=== PATIENT | female | born 1965 | race Caucasian/White ===

== ENCOUNTER 2017-01-09 18:16 | Emergency (ER) | payer OTHER ==
--- NOTE | ~2017-01-09 | ER ---
PATIENT'S NAME: [facility] AGE: 51 Y [address] ROOM: [place], [place] [address] LOCATION: [facility] ADMIT DATE: 01/09/2017 ER/Outpatient Report DISCHARGE DATE: 01/09/2017 FAMILY PHYSICIAN: Fareed Rehman MD ATTENDING PHYSICIAN: Luis Alfaro Time of Arrival: 1820 hours. Time of Evaluation: 1830 hours. CHIEF COMPLAINT: Right leg pain. HISTORY OF PRESENT ILLNESS: The patient has history of Parkinson's, and it extremely affects her right arm and right leg. She states she has just a crampy type pain of the right upper leg area. She saw Dr. Land yesterday. She was given Demerol and Phenergan. Does not feel like it has helped at all. She did get her deep brain stimulator placed and is scheduled to go back to [place] on Saturday for them to turn it on. She says it is not on at this time. The pain she describes as being similar to what she has had in the past. Not changed in anyway. She has not noticed any swelling, discoloration, or temperature changes of her legs. ALLERGIES: SHE HAS NO KNOWN ALLERGIES. CURRENT MEDICATIONS: On her chart and were reviewed by me. PAST MEDICAL HISTORY: Parkinson's. PAST SURGICAL HISTORY: Deep brain stimulator was placed. She has had surgery to her right foot. SOCIAL HISTORY: She presented to the ER tonight with her father. Denies use of tobacco, alcohol, or drugs. REVIEW OF SYSTEMS: All negative other than those mentioned in the HPI. PHYSICAL EXAMINATION: VITAL SIGNS: She states she is 5 feet 6 inches. She weighs 56.3 kg, blood pressure is 115/80, pulse of 87, respirations 16, temperature of 98.5, O2 PATIENT'S NAME: [facility] AGE: 51 Y [address] ROOM: [place], [place] [address] LOCATION: [facility] ADMIT DATE: 01/09/2017 ER/Outpatient Report DISCHARGE DATE: 01/09/2017 FAMILY PHYSICIAN: Fareed Rehman MD ATTENDING PHYSICIAN: Luis Alfaro saturation is 97% on room air. GENERAL: She is awake, alert, and oriented x4. SKIN: Her skin is pink, warm, and dry. RESPIRATIONS: Even and nonlabored. Lung sounds are clear throughout. HEART: Regular rate and rhythm. She has strong right pedal pulses. No peripheral edema noted. No deviation of temperature of her legs is noted. She is able to walk in with a steady even gait. EMERGENCY DEPARTMENT COURSE: She was given Dilaudid 1 mg IM, Phenergan 50 mg IM. IMPRESSION: Right leg pain, related to chronic pain with Parkinson's. PLAN: She will be discharged home. Rest. She is to continue her current medications. I recommended that she follow up with Dr. Lnad or Dr. Rehman, who is her primary provider, within the next 1-2 days, keep her appointment for Josefa as scheduled, she verbalized understanding. ASAEL ROLDAN APRN FOR MD BEBA POSADAS/kourtney /[id number] d: 01/10/17 0112 t: 01/15/17 1232, OUTPATIENT REPORT
[2017-01-10] MEDS ORDERED: PERCOCET 10-321 EACH PO (21:21)
[2017-01-10] MEDS ORDERED: SINEMET 25-1001 EACH PO (21:22)
[2017-01-10] MEDS ORDERED: KLONOPIN0.5 MG PO (21:23)
[2017-01-10] MEDS ORDERED: REMERON15 MG PO (21:23)
[2017-01-10] MEDS ORDERED: LEXAPRO10 MG PO (21:23)
[2017-01-10] MEDS ORDERED: ATIVAN 0.5MG0.5 MG PO (21:24)
[2017-01-10] MEDS ORDERED: THERAGRAN-M1 TAB PO (21:24)
[2017-01-10] MEDS ORDERED: PHENERGAN25 M1 PO (21:25)
== END 2017-01-09 18:55 | disposition disaster alternative care site (69) ==
LOC: GMED 18:16
DX: G89.29 Other chronic pain (principal); M79.651 Pain in right thigh; G20 Parkinson's disease; Z98.890 Other specified postprocedural states; Z79.899 Other long term (current) drug therapy
CPT/HCPCS: J1170; J2550

== ENCOUNTER 2017-01-10 19:52 | Observation (INO) | payer OTHER ==
[~2017-01-10] VITALS: Ht 167.6 cm; Wt 56.0 kg
--- NOTE | ~2017-01-10 | DS ---
PATIENT'S NAME: IZABELA MARIE [facility] AGE: 51 Y [address] ROOM: [address] [address] LOCATION: [facility] ADMIT DATE: 01/10/2017 Discharge Summary DISCHARGE DATE: 01/12/2017 FAMILY PHYSICIAN: Fareed Rehman MD ATTENDING PHYSICIAN: Zoila Land DISCHARGE DIAGNOSES: 1. Uncontrolled chronic pain along with uncontrolled acute pain of arm and legs. 2. Parkinson's disease. 3. Anxiety. 4. Muscle spasms. CONSULTS DURING ADMISSION: PT/OT. PROCEDURES DURING ADMISSION: None. HOSPITAL COURSE: The patient is a 51-year-old female with known history of Parkinson's and also has chronic pain which was not controlled as an outpatient. She presented to the emergency department and was admitted and we did IV pain medication including Dilaudid. We did Valium for her pain. We were able to get it under control just before discharge. Parkinson's remained stable during hospital stay. DISCHARGE CONDITION: Stable. DISPOSITION: Home. DISCHARGE MEDICATIONS: Please see list. DISCHARGE INSTRUCTIONS: The patient is to follow up with her primary care physician as directed. She is to follow up with Neurosurgery for pain stimulator to be turned on accordingly. ZOILA LAND MD RLG/modl /[id number] d: 01/25/17199 t: 02/18/172022, DISCHARGE SUMMARY
[2017-01-10] MEDS ORDERED: PERCOCET 10-321 EACH PO (21:21)
[2017-01-10] MEDS ORDERED: SINEMET 25-1001 EACH PO (21:22)
[2017-01-10] MEDS ORDERED: KLONOPIN0.5 MG PO (21:23)
[2017-01-10] MEDS ORDERED: LEXAPRO10 MG PO (21:23)
[2017-01-10] MEDS ORDERED: REMERON15 MG PO (21:23)
[2017-01-10] MEDS ORDERED: THERAGRAN-M1 TAB PO (21:24)
[2017-01-10] MEDS ORDERED: ATIVAN 0.5MG0.5 MG PO (21:24)
[2017-01-10] MEDS ORDERED: PHENERGAN25 M1 PO (21:25)
--- NOTE | 2017-01-11 02:17 | NUR ---
Patient is a 51 year old female, direct admit from [facility] for R)sided arm and leg pain. History of parkinson's disease with recent pain pump implanted at [facility] which is to be turned on next Saturday. Patient admitted for pain control under observation. VSS on admit. PIV placed to L)wrist.
--- NOTE | 2017-01-11 04:56 | NUR ---
Significant Event:A/Ox3. Afebrile. Hypotensive 85/53 on last assessment MAP 63. Patient states that her bp are usually 90's or low 100's. Other VSS on RA. Continous pulse ox. Morphine given x4 last dose at 0415. Dilaudid x1. Ativan x1. Valium 1mg IV x1. Pain is now tolerable, last dose of morphine given to stay above the pain. Pain is described as cramping to her right arm and leg. Neck pain bothered her very badly tonight until now. Patient is resting well. Follow up:Continue to monitor pain. PT juanita today.
--- NOTE | 2017-01-11 13:58 | NUR ---
Introduced self and CM role to Bonifacio and her dad who was at bedside. She lives in [place], alone, does her own medications at home and tells me her plan is to return there when medically cleared to do so. Denies any needs for HHC or DME upon discharge. No other questions, needs or concerns. Will continue to follow and assist. Plan home.
--- NOTE | 2017-01-11 17:24 | NUR ---
Significant Event:Patient had a good morning with little c/o pain. But this afternoon has had Dilaudid twice for c/o right leg pain. Ativan once. SBP 88-99. Room air. Some right sided tremors noted. Appetite ok. Follow up:Home tonight or tomorrow, better pain control
--- NOTE | 2017-01-12 04:58 | NUR ---
Significant Event: A/0 X 3, UP AD ANCELMO IN ROOM. SBP'S CONTINUE TO RUN IN THE 90'S (WHICH IS NORMAL FOR HER), HR 60-70'S, ALL OTHER VSS ON RA, AFEBRILE. CONTINUES TO HAVE PAIN AND CRAMPING, HAVE NOT BEEN ABLE TO CONTROL IT WITH PO MEDS. 0.5 DILUADID GIVEN X 2, ALONG WITH 20 MG PERCOCET. SHE HAS NOT RESTED THAT WELL THIS EVENGING DESPITE 5 MG AMBIEN AND 1 MG PO ATIVAN. SHE STATED SHE HAS NOT HAD A BM IN DAYS AND WILL WANT SOME MEDS FOR THIS TODAY. Follow up: CAN BE DISCHARGED IF PAIN CONTROLLED BY PO MEDS OTHERWISE WILL NEED TO BE CHANGED TO INPATIENT. STIMULATOR CANNOT BE TURNED ON Saturday.
[2017-01-12] MEDS ORDERED: AMBIEN5 MG PO (09:18)
[2017-01-12] MEDS ORDERED: VALIUM2 MG PO (11:27)
--- NOTE | 2017-01-12 12:02 | NUR ---
Discharge Summary: Patient A/O x 3. Up independently in room. Vital signs stable: HR 88, BP 95/50, RR 18, O2 saturation 96% on room air, and temp 97.7 F. Patient states she rested well last night and is doing better. Given IM Demerol and phenergan prior to dismissal for pain control in addition to her Percocet. Discharge instructions given regarding medication changes, signs/symptoms to be alert for, general dismissal instructions, and follow-up appointments. Patient and sister verbalized understanding of all instructions. Patient is to have her neurostimilator turned on Saturday to also help with pain control. IV and monitor discontinued. No other needs upon discharge. Patient left PCU at 1205 to [facility] entrance and then home to self care with sister. Angelica LESTER 01/12/17
== END 2017-01-12 12:05 | disposition disaster alternative care site (69) ==
LOC: GPCU 19:52
PROVIDERS: ADMIT Family Medicine
DX: M79.604 Pain in right leg (principal); M79.601 Pain in right arm; E78.5 Hyperlipidemia, unspecified; Z87.891 Personal history of nicotine dependence; Z98.890 Other specified postprocedural states; Z79.899 Other long term (current) drug therapy
CPT/HCPCS: G0378; G0379; J1170; J2175; J2270; J2550; J3360

== ENCOUNTER 2017-01-13 17:16 | Observation (INO) | payer OTHER ==
[~2017-01-13] VITALS: Ht 152.4 cm; Wt 55.8 kg
--- NOTE | ~2017-01-13 | HP ---
PATIENT'S NAME: IZABELA MARIE [facility] AGE: 51 Y [address] ROOM: [place] [address] LOCATION: [facility] ADMIT DATE: 01/13/2017 History & Physical DISCHARGE DATE: FAMILY PHYSICIAN: Zoila Land MD ATTENDING PHYSICIAN: Zoila Land DATE OF SERVICE: CHIEF COMPLAINT: Pain. HISTORY OF PRESENT ILLNESS: The patient is a 51-year-old female with chronic pain, who is having acute onset of neck pain along with right anterior leg pain and muscle spasms. The patient failed as an outpatient and is back for remission. The patient states now, though, she is having more muscle spasms. The patient denies any chest pain, shortness of breath, fevers, chills, nausea, or vomiting. PAST MEDICAL HISTORY: 1. Parkinson's. 2. Hyperlipidemia. 3. Chronic pain. 4. Alcoholism. PAST SURGICAL HISTORY: 1. Deep brain stimulator. 2. Foot surgery. 3. Removal of spinal cord stimulator generator. 4. [place] teeth. ALLERGIES: MYSOLINE. MEDICATIONS: Please see list. SOCIAL HISTORY: The patient is a former alcoholic. Currently . Denies any tobacco use. FAMILY HISTORY: 1. Significant for alcoholism. 2. Alzheimer's. 3. Breast cancer. 4. Cardiovascular disease. PATIENT'S NAME: [facility]ELA [facility] AGE: 51 Y [address] ROOM: [place] [address] LOCATION: [facility] ADMIT DATE: 01/13/2017 History & Physical DISCHARGE DATE: FAMILY PHYSICIAN: Zoila Land MD ATTENDING PHYSICIAN: Zoila Land 5. Hyperlipidemia. 6. Myocardial infarction. 7. Parkinson disease. REVIEW OF SYSTEMS: A complete review of systems obtained, pertinent positives and negatives as mentioned in the HPI. OBJECTIVE: GENERAL: The patient is alert, oriented, appears in mild distress due to pain. HEENT: Head: Normocephalic and atraumatic. Eyes: Conjunctivae clear. No scleral icterus. Mouth: Oropharynx is grossly moist and pink. No lesions or exudates. NECK: Supple. No lymphadenopathy or thyromegaly. HEART: Regular rate and rhythm. No rubs, murmurs, or gallops. LUNGS: Clear to auscultation bilaterally. ABDOMEN: Bowel sounds present. Nontender. EXTREMITIES: No cyanosis, clubbing, or edema. VASCULAR: Pulses +2 and equal bilaterally. SKIN: No rash or lesions. LYMPHATICS: No lymphadenopathy. NEURO: Cranial nerves II through XII grossly intact. The patient is having occasional tremors. MUSCULOSKELETAL: Pain to palpation in the right anterior thigh and also pain with movement of neck, but full range of motion. ASSESSMENT: 1. Neck pain. 2. Anterior leg pain. 3. Chronic pain. 4. Hyperlipidemia. 5. Myalgia. 6. Parkinson disease. 7. Insomnia. PLAN: At this time, we will admit and do IV Dilaudid along with IV Valium for spasms. We will do Ambien for her insomnia and we will continue to monitor and treat accordingly. If she develops nausea, we have Zofran present. ZOILA LAND MD PATIENT'S NAME: [facility]A [facility] AGE: 51 Y [address] ROOM: [place] [address] LOCATION: [facility] ADMIT DATE: 01/13/2017 History & Physical DISCHARGE DATE: FAMILY PHYSICIAN: Zoila Land MD ATTENDING PHYSICIAN: Zoila Land/tyronel /[id number] D: [id number] T: [id number] HISTORY & PHYSICAL
--- NOTE | ~2017-01-13 | ER ---
PATIENT'S NAME: IZABELA MARIE [facility] AGE: 51 Y [address] ROOM: [place] [address] LOCATION: [facility] ADMIT DATE: 01/13/2017 ER/Outpatient Report DISCHARGE DATE: FAMILY PHYSICIAN: Pascual Land MD ATTENDING PHYSICIAN: Pascaul Land Admission date and time documented in the medical record. I saw the patient when I came on shift at 1805 hours. CHIEF COMPLAINT: Pain in the right leg and right arm extending up into her neck and right side of her head. HISTORY OF PRESENT ILLNESS: This patient is a 51-year-old female, who has a history of chronic pain on the right side involving the right leg and right arm. Pain radiates into her right neck and to her right side of her head. She was in the hospital 2 to 3 days for treatment and just got out of the hospital. She is on Percocet 7.5/325 for pain, which is not controlling her pain, presented to the emergency room for evaluation. No changes in her pain other than that she is not controlled. The patient does have an implanted deep brain stimulator, but it is not going to be turned on until Saturday of this coming week. No fever, chills, sweats, coughs, colds, or flus. No shortness of breath or chest pain. No nausea, vomiting, diarrhea, or abdominal pain. No back pain. No extremity pain other than the right side involving her arm and leg. No eyes, ears, nose, or throat pain. No fall or trauma. No lightheadedness, dizziness, syncope, or near syncope. No psych issues. No endocrine problems. No skin eruptions or rashes. HOME MEDICATIONS: See attached medication list. ALLERGIES: NONE. SOCIAL HISTORY: Nonsmoker and nondrinker. SIGNIFICANT PAST MEDICAL HISTORY: Parkinson disease and chronic pain. OPERATIONS: Right foot surgery and deep brain stimulator placement. REVIEW OF SYSTEMS: PATIENT'S NAME: IZABELA MARIE [facility] AGE: 51 Y [address] ROOM: [place] [address] LOCATION: [facility] ADMIT DATE: 01/13/2017 ER/Outpatient Report DISCHARGE DATE: FAMILY PHYSICIAN: Pascual Land MD ATTENDING PHYSICIAN: Pascual Land All systems reviewed by me are negative with the exception of those discussed in the history of present illness. PHYSICAL EXAMINATION: VITAL SIGNS: Temperature 97.9 tympanic, pulse 91, respirations 16, blood pressure 131/87, and O2 saturation on room air is 97%. HEAD: Normocephalic. No abrasion, contusion, laceration, or swelling of the scalp or face. EYES: Extraocular muscles intact. PERRL. EARS: Clear TMs bilaterally. NOSE: Clear. THROAT: Clear. Mucous membranes moist. Teeth, jaw intact. NECK: Full range of motion. No nuchal rigidity. No thyromegaly or cervical adenopathy. SPINE: Negative. LUNGS: Clear. Good air flow. No rales, rhonchi, or wheezes. HEART: Regular. Pulses are palpable. ABDOMEN: Soft, nondistended, and nontender. Good bowel tones. No organomegaly or abnormal masses palpable. PELVIS: Stable. EXTREMITIES: Moves all 4 extremities. No peripheral edema, cyanosis, or deformity. NEUROVASCULAR: Intact. SKIN: Clear. IMPRESSION: 1. Acute on chronic pain, right arm and right leg, intractable. 2. Parkinson disease. PLAN: I did discuss the patient with Dr. Land, the patient's personal physician. We will readmit the patient to the hospital for pain control. Discussion ensued with the patient concerning my findings and recommendations, she understands. MD DESIRAE POSADAS/modl /[id number] d: 01/13/17 2219 t: 01/14/17 182, OUTPATIENT REPORT
[~2017-01-13 17:16] MED LIST: AMBIEN5 MG PO; ATIVAN 0.5MG0.5 MG PO; KLONOPIN0.5 MG PO; LEXAPRO10 MG PO; PERCOCET 10-321 EACH PO; PHENERGAN25 M1 PO; REMERON15 MG PO; SINEMET 25-1001 EACH PO; THERAGRAN-M1 TAB PO; VALIUM2 MG PO
--- NOTE | 2017-01-13 22:18 | NUR ---
Patient admitted at 1935 for right arm and right leg pain. Had just been hospitalized here and discharged yesterday for the same thing. Hx of parkinsons with a recent placement of deep brain stimulator last month. Has an appt on in [place] to get it activated. Other hx of hypotension, depression and anxiety. Normally has tremoring in right hand. Pain is cramping in nature and constant. No other complaints. Low risk VTE, pneumatics on. Received flu vaccine last month. No allergies
--- NOTE | 2017-01-14 03:54 | NUR ---
Significant Event: Patient alert and oriented x3. Up with stand by assist. Vitals stable, remains on continuous pulse ox. Patient rates right arm and right leg pain 6-8/10, constant cramping. CSM within normal limits. IV dilaudid given regularly, IV valium given once and zofran and phenergan given once each. Patient has tremoring in right hand, which is nothing new for her. Left forearm IV saline locked with good blood return. Has slept very little. Pleasant and cooperative with cares Follow up: monitor pain
--- NOTE | 2017-01-14 12:06 | NUR ---
A - PT SCREENED D/T [facility]ST. JUST DC'D ON 01/12. SEE 01/12 RD ASSESSMENT FOR FURTHER DETAILS. NO LABS. REPORTS 5# WT LOSS IN PAST FEW WEEKS. PARKINSONS. MEDS: LEXAPRO, SINEMET, REMERON, NAUSEA DIET: REG. 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 I - GOAL FOR INTAKE TO REMAIN 50-100% FOR DURATION OF STAY. WILL RESTART ENSURE @ BREAKFAST TO INC NUTRIENT INTAKE. M/E - WILL MONITOR INTAKE AND WT. F/U IN 3-5 DAYS.
--- NOTE | 2017-01-14 14:18 | NUR ---
Met with patient at bedside today. She reports that the pain is better, but still is difficult to control. She states that she lives alone and prior to this past month had been independent with all of her ADL's. 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 She states her parents have been staying with her the past month and her dad can continue to stay here and assist with her cares. She also has a sister in [place] that has been helpful wiht caring for her. She is scheduled to be seen in [place] tomorrow to activate the deep brain stimulator and she hopes this will help manage her pain. Her parents are driving her to that appointment. She denies having any other needs or concerns with discharge. Will continue to follow and offer supports.
--- NOTE | 2017-01-14 16:20 | NUR ---
Significant Event: PT A&O x3. VSS, on room air. PT c/o pain to R)leg and arm, controlled with perococet 2 tabs last at 1200, dilaudid 0.5mg IV last at 1543 and valium. PT c/o nausea relieved with zofran last at 1420. PT ambulates with SBA. Minimal appetite. Voiding without difficulties. Cooperative with cares. Follow up:
--- NOTE | 2017-01-15 03:39 | NUR ---
Significant Event: MULTIPLE MEDICATIONS GIVEN TONIGHT PER PATIENT REQUEST. ED TREVIÑO DILAUDID @ 2049. ZOFRAN GIVEN AFTER DINNER FOR NAUSEA. NAUSEA SUBSIDED AND PATIENT SLEPT WELL. Follow up: NAI @ 0630 THIS AM, TO TRAVEL TO APPOINTMENT IN [place]
== END 2017-01-15 06:50 | disposition disaster alternative care site (69) ==
LOC: GMED 17:16 → GPED 19:35
PROVIDERS: ADMIT Family Medicine
DX: G89.29 Other chronic pain (principal); M54.2 Cervicalgia; M79.1 Myalgia; E78.5 Hyperlipidemia, unspecified; F10.21 Alcohol dependence, in remission; G20 Parkinson's disease; Z98.890 Other specified postprocedural states; Z88.8 Allergy status to other drugs, medicaments and biological substances
CPT/HCPCS: G0378; J1170; J2405; J2550; J3360

== ENCOUNTER 2017-01-25 20:57 | Emergency (ER) | payer OTHER ==
--- NOTE | ~2017-01-25 | ER ---
PATIENT'S NAME: IZABELA MARIE [facility] AGE: 51 Y [address] ROOM: [place] [address] LOCATION: [facility] ADMIT DATE: 01/25/2017 ER/Outpatient Report DISCHARGE DATE: 01/25/2017 FAMILY PHYSICIAN: Fareed Rehman MD ATTENDING PHYSICIAN: Amanda Solitario HISTORY OF PRESENT ILLNESS: This is a 51-year-old female, who presents today with chief complaint of right arm pain and right leg pain. 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 She has been worked up for this before. She has noticed the same pain, and patient comes into the ER to get a shot. The patient was here a few days ago for the same. She says that she had a nerve stimulator placed and she said it was working for low bit but now it is not so much that is why she decided to come in. Denies fever or chills. Denies any pain that is out of the norm. No weakness on the right side and her gait is within normal limits. PAST MEDICAL HISTORY: Includes: 1. Atypical Parkinson's. 2. Hyperlipidemia. 3. Chronic pain. 4. Alcoholism. PAST SURGICAL HISTORY: 1. Deep brain stimulator. 2. Right foot surgery. 3. [place] teeth. ALLERGIES: MYSOLINE. MEDICATIONS: Please see associated med list. REVIEW OF SYSTEMS: Reviewed by me and negative with the exception of those discussed in the HPI. PHYSICAL EXAMINATION: VITAL SIGNS: The patient is 5 feet 6 inches. She is 57.7 kilo, heart rate 100, respiratory rate 100, temp 96, saturating 100% on room air. GENERAL: The patient is in no acute distress at this time. She is not writhing in pain. She appears to tighten up every once in a while. No seizure-like activity. Speaking in full sentences. Not actively vomiting or retching. PATIENT'S NAME: IZABELA MARIE [facility] AGE: 51 Y [address] ROOM: [place] [address] LOCATION: [facility] ADMIT DATE: 01/25/2017 ER/Outpatient Report DISCHARGE DATE: 01/25/2017 FAMILY PHYSICIAN: Fareed Rehman MD ATTENDING PHYSICIAN: Amanda Solitario HEART: Regular rate and rhythm at 92 beats per minute at this time. LUNGS: Lung sounds are clear. ABDOMEN: Soft, nontender. EXTREMITIES: She moves all extremities. Strength bilateral lower extremities are 5/5 and upper extremities 5/5. No pronator drift. Intact sensation in bilateral upper and lower extremities. Her gait is within normal limits as well. EMERGENCY ROOM COURSE: I reviewed her old records. This seems more of just like acute on chronic back pain. The patient usually gets a muscle relaxant and some IM Dilaudid and Phenergan which we did give her here. She will follow up with her primary care doctor, Dr. Land. IMPRESSION: Acute on chronic pain. MD ZACHARY NOBLE/kourtney /[id number] d: 01/26/17420 t: 02/20/17 181, OUTPATIENT REPORT
== END 2017-01-25 22:02 | disposition disaster alternative care site (69) ==
LOC: GMED 20:57
DX: G89.29 Other chronic pain (principal); M79.601 Pain in right arm; M79.604 Pain in right leg; E78.5 Hyperlipidemia, unspecified; G20 Parkinson's disease; F10.20 Alcohol dependence, uncomplicated; Z88.8 Allergy status to other drugs, medicaments and biological substances
CPT/HCPCS: J1170; J2550

== ENCOUNTER 2017-01-27 15:34 | Emergency (ER) | payer OTHER | END 2017-01-27 15:36 | disposition disaster alternative care site (69) | LOC: GMED 15:34 | DX: Z53.21 Procedure and treatment not carried out due to patient leaving prior to being seen by health care provider (principal) ==

== ENCOUNTER 2017-02-06 18:48 | Emergency (ER) | payer OTHER ==
--- NOTE | ~2017-02-06 | ER ---
PATIENT'S NAME: IZABELA MARIE [facility] AGE: 51 Y [address] ROOM: [place] [address] LOCATION: ED ADMIT DATE: 02/06/2017 ER/Outpatient Report DISCHARGE DATE: 02/06/2017 FAMILY PHYSICIAN: Pascual Land MD ATTENDING PHYSICIAN: Luis Alfaro Time of Arrival: 1848 hours. Time of Exam: 1858 hours. CHIEF COMPLAINT: Right-sided pain. HISTORY OF PRESENT ILLNESS: The patient has a long history of chronic pain related to Parkinson's. She states she has had pain for the past week. Current medications are not helping. She reports she has tried aqua therapy, physical therapy, cryotherapy without much relief. States the pain does not feel any differently than what she has had in the past. ALLERGIES: ON THE CHART. CURRENT MEDICATIONS: On the chart and reviewed by me. PAST MEDICAL HISTORY: Chronic pain, Parkinson's. PAST SURGERY: She has a deep brain stimulator, surgery to the right foot. SOCIAL HISTORY: Denies the use of tobacco, drugs, or alcohol. REVIEW OF SYSTEMS: All negative other than those mentioned in the HPI. PHYSICAL EXAMINATION: VITAL SIGNS: She weighed 57 kilograms, blood pressure is 146/91, pulse of 97, respirations 16, temperature of 97, O2 saturation is 98% on room air. GENERAL: She is awake, alert, and oriented x4. SKIN: [place], warm, and dry. LUNGS: Respirations are even and nonlabored. Lung sounds are clear throughout. HEART: Regular rate and rhythm. PATIENT'S NAME: IZABELA MARIE [facility] AGE: 51 Y [address] ROOM: [place] [address] LOCATION: [facility] ADMIT DATE: 02/06/2017 ER/Outpatient Report DISCHARGE DATE: 02/06/2017 FAMILY PHYSICIAN: Pascual Land MD ATTENDING PHYSICIAN: Luis Alfaro EXTREMITIES: No peripheral edema noted. Strong pedal pulses. EMERGENCY DEPARTMENT COURSE: The patient was given Dilaudid 1 mg IM, Phenergan 50 mg IM, and Valium 5 mg p.o. She has a friend here with her to drive her home and also will stay with her and watch. IMPRESSION: [id number] pain of the right side. PLAN: Home, rest. Continue her current medications. Follow up with primary provider, Dr. Land, within the next 2 to 3 days. She verbalized understanding. ASAEL ROLDAN APRN FOR MD BEBA POSADAS/kourtney /[id number] d: 02/07/17 0358 t: 02/09/17 1826, OUTPATIENT REPORT
== END 2017-02-06 19:10 | disposition disaster alternative care site (69) ==
LOC: GMED 18:48
DX: G89.29 Other chronic pain (principal); M79.601 Pain in right arm; M79.604 Pain in right leg; G20 Parkinson's disease; Z98.890 Other specified postprocedural states; Z79.899 Other long term (current) drug therapy
CPT/HCPCS: J1170; J2550

== ENCOUNTER 2017-02-12 18:57 | Emergency (ER) | payer OTHER ==
--- NOTE | ~2017-02-12 | ER ---
PATIENT'S NAME: IZABELA MARIE [facility] AGE: 51 Y [address] ROOM: [place] [address] LOCATION: ED ADMIT DATE: 02/12/2017 ER/Outpatient Report DISCHARGE DATE: 02/12/2017 FAMILY PHYSICIAN: Fareed Rehman MD ATTENDING PHYSICIAN: Luis Alfaro Time of Arrival: 1857 hours. Time of Evaluation: 1905 hours. CHIEF COMPLAINT: Chronic pain. HISTORY OF PRESENT ILLNESS: This is a 51-year-old female who presents to the ER, states she is having a flare-up of her chronic pain. She states it is all located in the right arm, leg, and side of her body. She states that this is her normal pain. She has been seeing her primary care physician, Dr. Rehman for this. He did write her for prescription pain medication in the middle of the month and was supposed to last to the . She states that she has ran out of those pain medications and the clinic will not give her anymore until she sees him on Saturday. She states she has had no recent illness. No fever or chills. No other problems at this time. She states that they are currently trying to get her into see a pain specialist in [place]. ALLERGIES: NO KNOWN ALLERGIES. MEDICATIONS: Please see medication list in nurse's notes. PAST MEDICAL HISTORY: Parkinson's, chronic pain, and she has a deep brain stimulator. SOCIAL HISTORY: Denies smoking, drug, or alcohol use. REVIEW OF SYSTEMS: A 10-point review of systems was completed and was negative with the exception of those discussed in the HPI. PHYSICAL EXAMINATION: VITAL SIGNS: Height 5 feet 6 inches stated, weight 57.1 kg taken, blood pressure is 135/81, pulse 76, respirations 16, temperature 98.6 degrees tympanically, and saturations 98% on room air. [place] Coma Score is 15. GENERAL: Alert, calm, well-developed female, in no obvious distress. She PATIENT'S NAME: IZABELA MARIE [facility] AGE: 51 Y [address] ROOM: [place] [address] LOCATION: [facility] ADMIT DATE: 02/12/2017 ER/Outpatient Report DISCHARGE DATE: 02/12/2017 FAMILY PHYSICIAN: Fareed Rehman MD ATTENDING PHYSICIAN: Luis Alfaro sits comfortably on the exam table. HEENT: Head, normocephalic. Eyes, pupils are equal and reactive to light. She does display moist mucous membranes. LUNGS: Clear to auscultation bilaterally. No wheezes or crackles. Normal respiratory effort. HEART: Regular rate and rhythm. No lifts, thrills, or murmurs. EXTREMITIES: No clubbing or cyanosis. She does have full range of motion of all limbs. LABORATORY DATA AND X-RAYS: None were done. IMPRESSION: [id number] pain. ASSESSMENT AND PLAN: I did speak with Dr. Land who is on-call for [facility] today, and he states that giving her, her usual pain shot will be able to get her by until she sees Dr. Rehman in the clinic on Saturday. After reviewing her chart in the computer, we did give her Demerol 100 mg and Phenergan 50 mg IM. She did tolerate this well. We will dismiss her to home, and she needs a followup with Dr. Rehman on Saturday. The patient understands and agrees with care. JOLENE AZAR PA-C FOR MD JAMILA POSADAS/tyronel /[id number] d: 02/13/172 t: 02/13/17 1817, OUTPATIENT REPORT
== END 2017-02-12 19:29 | disposition disaster alternative care site (69) ==
LOC: GMED 18:57
DX: G89.29 Other chronic pain (principal); M79.601 Pain in right arm; M79.604 Pain in right leg
CPT/HCPCS: J2175; J2550

== ENCOUNTER 2017-02-17 17:10 | Emergency (ER) | payer OTHER ==
--- NOTE | ~2017-02-17 | ER ---
PATIENT'S NAME: IZABELA MARIE [facility] AGE: 51 Y [address] ROOM: [place] [address] LOCATION: [facility] ADMIT DATE: 02/17/2017 ER/Outpatient Report DISCHARGE DATE: 02/17/2017 FAMILY PHYSICIAN: Fareed Rehman MD ATTENDING PHYSICIAN: Ambrose Rivera Time of Arrival: 1710 hours. Time of Evaluation: 1725 hours. CHIEF COMPLAINT: Pain in right leg and arm. HISTORY OF PRESENT ILLNESS: This is a 51-year-old female, who is well known to us here in the emergency room, who is complaining she is having acute episode of her chronic pain. She states that she was evaluated here last week in the ER, and she did follow up with her primary care physician on Saturday. She states that her pain medications were refilled on Saturday. They told her she could only use a couple of them a day to get her by until the middle of February. She states she is trying to get in to see a pain specialist in [place] but has not got that appointment set up yet. She states that the Demerol we gave her last time worked, but Dilaudid works the best for her. ALLERGIES: NO KNOWN ALLERGIES. MEDICATIONS: Please see medication list in nurse's notes. PAST MEDICAL HISTORY: 1. Parkinson's. 2. Anxiety. 3. Depression. 4. She has a deep brain stimulator. SOCIAL HISTORY: Denies smoking, drug, or alcohol use. REVIEW OF SYSTEMS: A 10-point review of system was completed and was negative with the exception of those discussed in the HPI. PHYSICAL EXAMINATION: VITAL SIGNS: Height 5 feet 6 inches stated, weight 57.5 kg taken, blood pressure is 140/74, pulse 87, respirations 18, temperature 98.1 degrees PATIENT'S NAME: IZABELA MARIE [facility] AGE: 51 Y [address] ROOM: [place] [address] LOCATION: [facility] ADMIT DATE: 02/17/2017 ER/Outpatient Report DISCHARGE DATE: 02/17/2017 FAMILY PHYSICIAN: Fareed Rehman MD ATTENDING PHYSICIAN: Ambrose Rivera tympanically, saturations 99% on room air. [place] Coma Score is 15. GENERAL: An alert, well-developed female, in no acute distress. LUNGS: Clear to auscultation bilaterally. No wheezes or crackles. HEART: Regular rate and rhythm. ABDOMEN: Soft, nontender. She has good bowel sounds throughout. No masses are palpated. EXTREMITIES: She does have full range of motion of all limbs. LABORATORY DATA AND X-RAYS: None were done. IMPRESSION: Acute on chronic pain to her right arm and leg. ASSESSMENT AND PLAN: I did discuss the patient's care with Dr. Rivera. I did review the patient's chart. When I initially ordered Demerol and Phenergan for her again, the patient states that Dilaudid works better for her, and she would like that instead. I will give her Dilaudid 1 mg IM along with Phenergan 50 mg IM. I advised I would like her primary care physician to send us a letter on how to treat her chronic pain here in the emergency room, and I told her that if we do not receive that letter, she will not receive anymore narcotics in the ER. The patient understands and agrees with care. JOLENE AZAR PA-C FOR MD JAMILA WINSTON/kourtney /[id number] d: 02/17/17 2345 t: 03/13/17 0903, OUTPATIENT REPORT
== END 2017-02-17 17:51 | disposition disaster alternative care site (69) ==
LOC: GMED 17:10
DX: G89.29 Other chronic pain (principal); M79.601 Pain in right arm; M79.604 Pain in right leg; F41.8 Other specified anxiety disorders; G20 Parkinson's disease; Z96.9 Presence of functional implant, unspecified
CPT/HCPCS: J1170; J2550

== ENCOUNTER 2017-03-04 22:53 | Emergency (ER) | payer OTHER ==
--- NOTE | ~2017-03-04 | ER ---
PATIENT'S NAME: IZABELA MARIE [facility] AGE: 51 Y [address] ROOM: [place] [id number] LOCATION: [facility] ADMIT DATE: 03/04/2017 ER/Outpatient Report DISCHARGE DATE: 03/05/2017 FAMILY PHYSICIAN: Fareed Rehman MD ATTENDING PHYSICIAN: Amanda Solitario Time of Arrival: 2256 hours. Time of Exam: 2258 hours. CHIEF COMPLAINT: Confusion. HISTORY OF PRESENT ILLNESS: The patient is well known to the ER here. She has problems with chronic right- sided pain. States that she is taking her pain medication as prescribed but continues to have problems. She states she has only taken the Percocet 1 every four days because she is trying to wean herself off them. She reports she last took one at 11 o'clock this morning. She feels as though the last 2 days she just feels confused. She thinks it might be due to not taking the narcotics. She continues to have a chronic right-sided pain. She does have a neurostimulator that was put in [place]. She states she did talk with them, and they did not want her to make any adjustments to it. She is scheduled to go back to [place] for recheck on 03/14/2017. ALLERGIES: SHE HAS NO KNOWN ALLERGIES. CURRENT MEDICATIONS: On the chart and reviewed by me. PAST MEDICAL HISTORY: Parkinson's, chronic right-sided pain. PAST SURGERIES: Neurostimulator, foot repair. SOCIAL HISTORY: She denies the use of tobacco, drugs, or alcohol. She presents to the ER tonight accompanied by a friend. REVIEW OF SYSTEMS: All negative other than those mentioned in the HPI. PHYSICAL EXAMINATION: VITAL SIGNS: She weighed 56.2 kilograms; blood pressure is 130/79; pulse of PATIENT'S NAME: IZABELA MARIE [facility] AGE: 51 Y [address] ROOM: [place] [address] LOCATION: [facility] ADMIT DATE: 03/04/2017 ER/Outpatient Report DISCHARGE DATE: 03/05/2017 FAMILY PHYSICIAN: Fareed Rehman MD ATTENDING PHYSICIAN: Amanda Solitario 82; respirations 16; temperature of 98.3, tympanic; O2 saturation is 97% on room air. GENERAL: She is awake, alert, and oriented x4. SKIN: [place], warm, and dry. LUNGS: Respirations are even and nonlabored. Lung sounds are clear throughout. HEENT: Pupils are equal and reactive to light. Extraocular movement is intact. She moves all extremities strongly and equally. HEART: Regular rate and rhythm. LABORATORY DATA AND X-RAYS: Lab work was drawn. CBC shows a white count of 12.9, hemoglobin is 12.8 with hematocrit of 39.3. Chem panel is within normal limits. Alcohol is negative. Acetaminophen level is negative. Tylenol level is negative. Urine drug screen is positive for barbiturates. CT of the head was completed. No acute process is seen. Patient discussed with Dr. Solitario. IMPRESSION: Chronic pain. PLAN: Home, rest. Continue her current medications as prescribed. Encouraged her to call Dr. Rehman's office tomorrow to make arrangements to be seen. She states she is supposed to be going to a pain specialist in [place]. I encouraged her to follow up with them and find out the status of that visit. She verbalizes understanding. ASAEL ROLDAN APRN FOR MD BEBA NOBLE/kourtney /[id number] d: 03/05/17 0549 t: 04/03/17 1101, OUTPATIENT REPORT
[2017-03-04 23:31] LABS: BASOPHIL # 0.1 K/uL (0.0-0.2); BASOPHIL % 0.5 %; EOSINOPHIL # 0.1 K/uL (0.0-0.5); EOSINOPHIL % 0.7 %; HEMATOCRIT 39.3 % (33.0-46.0); HEMOGLOBIN 12.8 g/dL (10.0-15.0); IMMATURE GRANULOCYTE % 0.2 %; LYMPHOCYTE # 3.8 K/uL (0.8-4.0); LYMPHOCYTE % 29.1 %; MCH 31.4 pg (27.0-34.0); MCHC 32.6 gm/dL (32.0-36.5); MCV 96.6 fl (83.0-98.0); MONOCYTE # 0.9 K/uL (0.0-1.0); MONOCYTE % 6.6 %; MPV 9.8 fl (9.4-12.4); NEUTROPHIL # (ANC) 8.1 K/uL (1.8-7.8); NEUTROPHIL % 62.9 %; NRBC % 0 /100WBC (0-0.00); PLATELET COUNT 356 K/uL (150-450); RBC 4.07 M/uL (3.50-5.50); RDW-CV 13.4 % (11.9-14.6); WBC 12.9 K/uL (4.0-11.0)
[2017-03-04 23:45] LABS: BARBITURATE POSITIVE (NEGATIVE); OPIATES NEGATIVE (NEGATIVE)
[2017-03-04 23:47] LABS: ALBUMIN 4.1 gm/dL (3.5-5.0); ALK PHOS 61 IU/L (33-138); AST 7 IU/L (10-40); BLOOD UREA NITROGEN 22 mg/dL (6-24); CALCIUM 9.1 mg/dL (8.5-10.5); CHLORIDE 107 mMol/L (96-110); CO2 25 mMol/L (22-32); ESTIMATED GFR (MDRD EQUATION) 59; SODIUM 140 mMol/L (135-145); TOTAL BILIRUBIN 0.3 mg/dL (0.0-1.5); TOTAL PROTEIN 7.6 g/dL (6.0-8.4)
[2017-03-04 23:50] LABS: AMPHETAMINE NEGATIVE (NEGATIVE); COCAINE NEGATIVE (NEGATIVE)
[2017-03-04 23:51] LABS: ALT < 10 IU/L (12-78)
== END 2017-03-05 01:30 | disposition disaster alternative care site (69) ==
LOC: GMED 22:53
PROVIDERS: Emergency Medicine
DX: G89.29 Other chronic pain (principal); G20 Parkinson's disease; Z98.890 Other specified postprocedural states; Z96.9 Presence of functional implant, unspecified; Z79.891 Long term (current) use of opiate analgesic
CPT/HCPCS: G0480